=== PATIENT | male | born 1970 | race Caucasian/White ===

== ENCOUNTER 2023-07-28 07:43 | Emergency (ER) | payer OTHER, SELFPAY ==
[2023-07-28] VITALS (10 sets, daily range): BP systolic 143–171; BP diastolic 91–108; PULSE 83–95; RESP 16; TEMP 36.6; O2SAT 92–97; BMI 31.4
--- NOTE | 2023-07-28 08:28 | ED_ITS ---
HPI - General Adult General Date Seen: 07/28/23 Chief complaint: Allergic Reaction Stated complaint: angio edema Time Seen by Provider: 07/28/23 08:04 Source: patient Mode of arrival: ambulatory Limitations: no limitations History of Present Illness HPI narrative: Patient is a 53-year-old male, generally healthy, presents with angioedema of the upper lip and to lesser extent the lower lip. He has had multiple episodes of this since last fall, has an appointment with an heater planer operator in a few days. He has not been seen previously aside from by his primary doctor, has not had blood work. He tried Benadryl today without affect. He does not take any medications. He has never had any airway problems. Swelling is always of either the upper lip or the lower lip, came to the ER today as both are involved. Symptoms otherwise are not as severe as they have been in the past. He developed swelling approximately 5 hours prior to presenting to the ER and it has been stable to mildly improving. No wheezing or other difficulty breathing. Related Data Home Medications Medication Instructions Recorded Confirmed No Known Home Medications 07/28/23 07/28/23 Allergies Allergy/AdvReac Type Severity Reaction Status Date / Time No Known Drug Allergies Allergy Verified 07/28/23 07:49 Review of Systems Status of ROS: Reports: 6 or more systems reviewed and unremarkable except as noted in History and below [facility] Social History Smoking Status: Never smoker Do you use any of these nicotine containing products: None Second hand tobacco smoke exposure: No How often do you have a drink containing alcohol: 2-4 times a month AUDIT-C Alcohol total score: 2 Non-prescribed substance use: denies use service: No Exam Narrative: Exam Narrative: Vital signs as noted above. In general, an alert, well-appearing patient. Breathing easily. Head: Normocephalic, atraumatic. Eyes: Pupils are equal reactive. Extraocular movements are full. Conjunctivae are normal. ENT: Mucous membranes are moist. Throat is normal. Minimal angioedema noted, primarily to the upper lip. Neck: Supple without lymphadenopathy. No stridor. Heart: Regular rate and rhythm. No murmur or rub. Lungs: Clear bilaterally. No increased work of breathing, crackles or wheezes. Abdomen: Soft and nontender. No organomegaly. Extremities: Well perfused. No edema. No calf tenderness. Pulses intact. Neurologic: Patient is alert and oriented to person and place. Speech is fluent. Face is symmetric. Moves all extremities equally. Affect: Normal. Skin: Warm and dry. Well perfused. Const: Vital Signs, click to edit/add: Vital Signs - 24 hr 07/28/23 07:44 07/28/23 07:51 07/28/23 07:52 Temperature 97.9 F Pulse Rate Pulse Rate [Right Pulse Oximeter] 95 90 Respiratory Rate 16 16 Blood Pressure Blood Pressure [Ri ght Upper Arm] 171/108 H 171/108 H 160/101 H Pulse Oximetry 97 96 Oxygen Delivery Me thod Room Air Room Air 07/28/23 07:57 07/28/23 08:00 07/28/23 08:02 Temperature Pulse Rate 83 84 88 Pulse Rate [Right Pulse Oximeter] Respiratory Rate Blood Pressure 156/96 H Blood Pressure [Ri ght Upper Arm] Pulse Oximetry 94 94 94 Oxygen Delivery Me thod 07/28/23 08:03 07/28/23 08:15 07/28/23 08:30 Temperature Pulse Rate 90 86 83 Pulse Rate [Right Pulse Oximeter] Respiratory Rate Blood Pressure Blood Pressure [Ri ght Upper Arm] Pulse Oximetry 94 93 92 Oxygen Delivery Me thod 07/28/23 08:32 Temperature Pulse Rate 87 Pulse Rate [Right Pulse Oximeter] Respiratory Rate 16 Blood Pressure 143/91 H Blood Pressure [Ri ght Upper Arm] Pulse Oximetry 94 Oxygen Delivery Me thod Documenting provider has reviewed patient's vital signs: yes Course Course ED Course: Did draw complement levels, offered observation but 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 If he worsens he will return. Given that he has a fairly solid history of this in our the past few months without any airway compromise anticipate that he will continue to improve certainly should return if worsening. Follow up as planned. Initial blood pressure elevated here, recommend recheck with primary care. He tells me that this is being watched by his regular doctor. Vital Signs Vital signs: Initial Vital Signs Pulse Rate 95 07/28/23 07:44 Respiratory Rate 16 07/28/23 07:44 Blood Pressure 171/108 H 07/28/23 07:44 Blood Pressure Mean 129 H 07/28/23 07:44 Blood Pressure Position Sitting 07/28/23 07:44 Pulse Oximetry 97 07/28/23 07:44 Oxygen Delivery Method Room Air 07/28/23 07:44 Vital Signs Pulse Rate 95 07/28/23 07:44 Respiratory Rate 16 07/28/23 07:44 Blood Pressure 171/108 H 07/28/23 07:44 Pulse Oximetry 97 07/28/23 07:44 Oxygen Delivery Method Room Air 07/28/23 07:44 Temperature 97.9 F 07/28/23 07:51 Pulse Rate 87 07/28/23 08:32 Respiratory Rate 16 07/28/23 08:32 Blood Pressure 143/91 H 07/28/23 08:32 Pulse Oximetry 94 07/28/23 08:32 Oxygen Delivery Method Room Air 07/28/23 07:51 Discharge Plan Discharge Clinical Impression: Angioedema of lips Patient Disposition: Home, Self-Care Condition: Stable Instructions: Angioedema (ED) Additional Instructions: Return for any concerns about airway or significant increases in swelling. Otherwise, follow up with Allergy as planned on Tuesday. The complement studies are send out labs, hopefully back by Tuesday. Prescriptions: No Action No Known Home Medications Follow Up/Referrals: Darrell Sosa MD [Primary Care Provider] - Stand Alone Forms: [employer] Info Instructions
[2023-07-29 22:31] LABS: Complement Activity Total 82.2 U/mL (38.7-89.9)
[2023-07-30 01:27] LABS: Complement Component 4 26 mg/dL (10-40)
== END 2023-07-28 08:38 | disposition home or self-care (01) ==
PROVIDERS: Emergency Provider Emergency Medicine
DX: T78.3XXA Angioneurotic edema, initial encounter (principal)
CPT/HCPCS: 36415; 86160; 86162; 99283; 99284

== ENCOUNTER 2023-12-17 17:16 | Emergency (ER) | payer OTHER, SELFPAY ==
--- NOTE | 2023-12-17 17:20 | ED_ITS ---
HPI - General Adult General Date Seen: 12/17/23 Chief complaint: Back Injury/Pain Stated complaint: back injury Time Seen by Provider: 12/17/23 17:19 History of Present Illness HPI narrative: This is a 53-year-old male with a previous history distant history of L5-S1 disc extrusion (healed non operatively, and a L4-L5 disc surgery (diskectomy roughly 6 years ago). He is otherwise healthy. 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 The he presents to the ER today with low back pain as a work related injury. He was at work today. He was part of a 10 minutes crew who were returning a patient to home. She is apparently has a markedly elevated BMI and a total body weight of roughly 500-700 lb. She was being transferred home after an ER evaluation early this morning. He was part of a 10% crew her helping carry her down a flight of steps into her basement, where she lives. Apparently during that process they had to pivot the patient and adjust. Her weight shifted unexpectedly and the patient was pulled off balance and felt an injury to his low back. Since then he has been having pain in his left lumbar paraspinous muscles just to the left midline. He momentarily had a little bit of pain down his left leg into his buttock. No persistent pain down the leg. No numbness or weakness down the leg. Since the injury he has been able to walk normally. No dysfunction of bowel or bladder. No fever or chills. He recalls that he did have back surgery about 5 or 6 years ago and has been healed from that. He has been essentially able to do all of his normal activities. He does not do formal physical therapy anymore but does do yoga and stretching for his back to keep it healthy. No other recent problems with back pain. 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 He has been seen by slunk skin curer who speculated that is angioedema could be related to NSAID use. However he has been able to take NSAIDs sporadically respect for his body aches without lip swelling recently. Related Data Previous Rx's ?Medication ?Instructions ?Recorded hydrocodone 5 mg-acetaminophen 325 1 tab PO Q4-6H PRN pain #10 tabs 12/17/23 mg tablet Allergies Allergy/AdvReac Type Severity Reaction Status Date / Time No Known Drug Allergies Allergy Verified 07/28/23 07:49 PFSH PFSH Social History Smoking Status: Never smoker Do you use any of these nicotine containing products: None Second hand tobacco smoke exposure: No How often do you have a drink containing alcohol: 2-4 times a month AUDIT-C Alcohol total score: 2 Non-prescribed substance use: denies use service: No Exam Narrative: Exam Narrative: Constitutional: Appears well-developed and well-nourished. Active. Non-toxic appearing. HENT: Head: Atraumatic. No signs of injury. Nose: No nasal discharge. Mouth/Throat: Mucous membranes are moist. Pharynx is normal. Tonsils symmetric. Uvula midline. Airway patent. Eyes: Conjunctivae normal and EOM are normal. Pupils are equal, round, and reactive to light. Right eye exhibits no discharge. Left eye exhibits no discharge. No icterus. Neck: Normal range of motion. Neck supple. No adenopathy. No stridor. Cardiovascular: Normal rate and regular rhythm. No murmur heard. No murmurs, rubs, or gallops. Brisk capillary refill Pulmonary/Chest: Effort normal. No stridor. No respiratory distress. No wheezes.No rhonchi. No rales. No retractions. Abdominal: Soft. Bowel sounds are normal. No distension. No mass. There is no tenderness. There is no rebound and no guarding. Musculoskeletal: Normal range of motion. No edema. No tenderness. No deformity. No midline tenderness or step-off of the lumbar spine. Pelvis is nontender and stable. He does have mild discomfort in the left lumbar paraspinous muscles roughly adjacent to the lower 1/3 of his lumbar spine. Neurological: Alert. Normal strength. No cranial nerve deficit or sensory deficit. Coordination normal. GCS eye subscore is 4. GCS verbal subscore is 5. GCS motor subscore is 6. Sensory: Normal light touch sensation bilaterally on the anteromedial thigh (L3), medial malleolus (L4), dorsal first web space (L5), lateral malleolus (S1). Strength: 5/5 strength hip flexors (L3) on the rig ht and left 5/5 strength in the quadriceps (L4) on t he right and left 5/5 strength in the tibialis anterior 5/5 strength in the EHL (L5) on the righ t and left 5/5 strength in the gastrocnemius (S1) o n the right and left 5/5 strength in the hamstring on the rig ht and left Negative straight leg raise bilaterally. Skin: Skin is warm. No rash noted. Const: Vital Signs, click to edit/add: Vital Signs - 24 hr 12/17/23 17:22 Temperature 98 F Pulse Rate [Left P ulse Oximeter] 94 Respiratory Rate 18 Blood Pressure [Le ft Upper Arm] 148/102 H Pulse Oximetry 95 Oxygen Delivery Me thod Room Air Course Vital Signs Vital signs: Initial Vital Signs Temperature 98 F 12/17/23 17:22 Temperature Source Temporal Artery Scan 12/17/23 17:22 Pulse Rate 94 12/17/23 17:22 Pulse Rhythm Regular 12/17/23 17:22 Pulse Strength 3+ Normal 12/17/23 17:22 Respiratory Rate 18 12/17/23 17:22 Blood Pressure 148/102 H 12/17/23 17:22 Blood Pressure Mean 117 H 12/17/23 17:22 Blood Pressure Position Semi-Fowlers 12/17/23 17:22 Pulse Oximetry 95 12/17/23 17:22 Oxygen Delivery Method Room Air 12/17/23 17:22 Vital Signs Temperature 98 F 12/17/23 17:22 Pulse Rate 94 12/17/23 17:22 Respiratory Rate 18 12/17/23 17:22 Blood Pressure 148/102 H 12/17/23 17:22 Pulse Oximetry 95 12/17/23 17:22 Oxygen Delivery Method Room Air 12/17/23 17:22 Temperature 98 F 12/17/23 17:22 Pulse Rate 94 12/17/23 17:22 Respiratory Rate 18 12/17/23 17:22 Blood Pressure 148/102 H 12/17/23 17:22 Pulse Oximetry 95 12/17/23 17:22 Oxygen Delivery Method Room Air 12/17/23 17:22 Medical Decision Making MDM Narrative Medical decision making narrative: This patient presented with back pain after a work related injury. He was part of a crew that was caring a heavy patient down a flight of steps when he injured his back today. Broad differential considered. The patient did not sustain any trauma, therefore x-rays are not necessary due to the low likelihood of fracture or subluxation. No red flag symptoms to suggest CT and/or MRI is indicated at this point. The patient has not had a fever, saddle/perineal anesthesia, bilateral foot numbness, or bowel or bladder dysfunction. There is no clinical evidence of cauda equina syndrome, discitis, spinal/epidural space hematoma or epidural abscess. He does have a distant history of lumbar disc disease and has had a previous diskectomy about 6 years ago but does not have chronic low back pain. The neurological exam is normal and the patient's symptoms seem consistent with a musculoskeletal issues and significant muscle spasm. Pain has improved with interventions in the emergency department. The patient will be discharged with pain medications to use as directed. Ice or heat to the back and stretching exercises. He wants to start with Tylenol and ibuprofen. He thinks that ibuprofen will probably be adequate. Although there is a the a theoretical risk that ibuprofen could trigger angioedema, he has had a long history of using it so we feel safe using it for short course for this back injury. No heavy lifting, bending or twisting. Return if increasing pain, numbness, weakness, or bowel or bladder dysfunction. The patient was advised to schedule follow-up with their primary doctor within 2-3 days to re-assess symptoms. 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 Return precautions reviewed and questions answered. Prescription for [place] sent to his pharmacy. He anticipates he will likely not use it but is good to have it for backup. Opiate precautions reviewed. Discharge Plan Discharge Clinical Impression: Low back pain Patient Disposition: Home, Self-Care Condition: Stable Instructions: Acute Low Back Pain (ED) Additional Instructions: As we discussed, please follow-up for your appointment on Tuesday for recheck. If you have worsening pain, numbness or weakness down your leg, trouble with the function of your bowels or bladder, or any problems please come back to the ER right away. Use ibuprofen if needed for pain. You can use the prescription pain killer, [place], if needed for breakthrough pain. Use caution with [place] because it causes dizziness, drowsiness, constipation, and can be addictive. If you are not completely improved within the next 3-4 days, follow-up with your doctors or with the [facility] for recheck. If needed you can come back to the ER for recheck. Prescriptions: New hydrocodone-acetaminophen 5-325 mg tablet 1 tab PO Q4-6H PRN (Reason: pain) Qty: 10 0RF Follow Up/Referrals: Darrell Sosa MD [Primary Care Provider] - Stand Alone Forms: [employer] Info Instructions
[2023-12-17 17:22] VITALS: BP 148/102; PULSE 94; RESP 18; TEMP 36.6; O2SAT 95; BMI 32.4
== END 2023-12-17 18:02 | disposition home or self-care (01) ==
LOC: ED 18:01
PROVIDERS: Emergency Provider Emergency Medicine
DX: M54.50 Low back pain, unspecified (principal)
CPT/HCPCS: 99282; 99283